=== PATIENT | female | born 1950 | race Caucasian/White ===

== ENCOUNTER → 2017-03-25 | Outpatient (CLI) | payer MEDICARE ==
--- NOTE | 2017-03-25 15:32 | KCIC ---
THYROID ULTRASOUND History: Nontoxic multinodular goiter Comparison: August 20, 2015 Findings: Right lobe of the thyroid gland is estimated at 7.1 x 3.1 x 3.7 cm although inferior aspect unable to be fully visualized as extends inferior to the level of the clavicle. Left lobe is estimated at 6.2 x 4.9 x 5 cm although also incompletely visualized. Isthmus measured 3.2 cm in AP dimension. There is diffuse prominent heterogeneity of the thyroid parenchyma with areas of increased vascularity on color Doppler imaging, difficult to identify discrete dominant nodule given diffuse heterogeneity. There is appearance of the thyroid gland being completely replaced by multiple heterogeneous nodules. Impression: 1. There is again severe thyromegaly, diffuse heterogeneity of the gland which appears to be replaced by multiple nodules compatible with provided history of multinodular goiter. Inferior aspect of the gland againcould not be fully visualized. Electronically signed by: Daniel Huber MD (03/25/2017 3:28 PM)
--- NOTE | 2017-03-25 17:58 | KCIC ---
Bilateral digital screening mammograms: Reason for examination: Routine screening. Comparison is made to previous study dated 08/20/2015. The skin and nipples show no abnormalities. No abnormal lymph nodes are seen. The breast parenchyma is predominantly fatty. (Breast density: Category A.) There are no dominant masses, suspicious calcifications or architectural distortions. A few benign calcifications are again seen. Impression: No evidence of malignancy. Recommend routine screening. BI-RADS Category 2: Benign. "Our facility is accredited by the [employer] Mammography [employer]." This patient's information has been entered into a reminder system for the patient to be notified with the results of her examination and a target date for the next mammogram. Electronically signed by: Anay Conner MD (03/25/2017 5:55 PM)
== END | disposition home or self-care (01) ==
LOC: KCIC MAMMO 08:00
PROVIDERS: ATTEND Physician Assistant Medical
DX: Z12.31 Encounter for screening mammogram for malignant neoplasm of breast (principal); E04.2 Nontoxic multinodular goiter
CPT/HCPCS: 76536; G0202; 77067